=== PATIENT | male | born 1970 | race Caucasian/White ===

== ENCOUNTER 2017-06-05 16:36 | Inpatient (IN) | payer OTHER ==
[~2017-06-05] VITALS: Ht 172.7 cm; Wt 102.1 kg
--- NOTE | ~2017-06-05 | HC ---
[facility] [place] [address] CONSULTATION Name: ZACHARY OLIVAREZ Room #: 422-P [facility] IN M.R.#: [id number] Admission: 06/05/17 Attend Phys: Hermila Sharif MD Discharge: 06/07/17 Date of : 74 Report #: [id number] THIS REPORT FOR: //name// CC: Hung Sharif DATE OF SERVICE: 06/06/2017 CHIEF COMPLAINT: Right ureteral stone. HISTORY OF PRESENT ILLNESS: The patient is being seen today at the request of Dr. Sharif for evaluation and management of distal ureteral stone. He was admitted yesterday morning with severe right flank pain and nausea. He has undergone lithotripsy in the past. He has required persistent pain medicine. ALLERGIES: None. ILLNESSES: Hypertension and dyslipidemia. MEDICATIONS: Lipitor 40 mg daily, metoprolol 100 mg daily, quinapril 20 mg daily. 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 He does not smoke or drink. REVIEW OF SYSTEMS: He denies shortness of breath or chest pain. PHYSICAL EXAMINATION: GENERAL: He is a comfortable appearing gentleman. VITAL SIGNS: Temperature is 37.2, pulse 72, respirations 16, blood pressure 148/84. ABDOMEN: Soft, without masses. LABORATORY DATA: White count 7.4 thousand, hemoglobin 11.6, hematocrit 33.2, platelets 133,000. Sodium is 138, potassium 3.8, chloride 105, CO2 of 24, creatinine is 2.7 up from 2.5 yesterday. Urine is clear yellow, specific gravity is 1.025, pH is 5.0, trace blood, negative for nitrites and leukocyte esterase. CT scan shows a 9-mm stone in the right lower pole of the kidney, which is nonobstructing. There is a ____ mm stone, 1 cm proximal to the right ureterovesical junction. IMPRESSION: Symptomatic right UVJ stone. PLAN: Discussed options including continued observation or ureteroscopy given this pain. Pain is poor control and he has had a rise in his creatinine, I would recommend intervention. Risks, benefits, complications were discussed in [facility] [address] [place] [address] CONSULTATION Name: ZACHARY OLIVAREZ Room #: 422-P [facility] IN M.R.#: [id number] Admission: 06/05/17 Attend Phys: Hermila Sharif MD Discharge: 06/07/17 Date of : 74 Report #: [id number] detail including injury to the kidney and injury to the ureter, issues related to stent placement and stent removal. He is anxious to proceed. We will check into scheduling. <ELECTRONICALLY SIGNED> By: Tanmay Ortiz MD 06/09/17 1537 [id number] Tanmay Ortiz MD /nt
--- NOTE | ~2017-06-05 | HC ---
[facility] [place] [address] CONSULTATION Name: ZACHARY OLIVAREZ Room #: 422-P [facility] IN M.R.#: [id number] Admission: 06/05/17 Attend Phys: Hermila Sharif MD Discharge: 06/07/17 Date of : 74 Report #: [id number] THIS REPORT FOR: //name// CC: Hung Sharif REASON FOR CONSULTATION: Acute kidney injury. REASON FOR PRESENTATION: pain. HISTORY OF PRESENT ILLNESS: The patient is known to have nephrolithiasis with a previous left-sided nephrolithiasis episodes. He presented with 2 days of flank pain with radiation to the groin area. The pain was associated with nausea. It was described as a typical nephrolithiasis pain. Pain intensity got exacerbated over the last 2 days before his presentation to the emergency room. There were some partials reliefs of those pain with the Aleve. No reported hematuria. No reported fever or chills. The patient could not tolerate the pain and presented to the emergency room, where he had a CT that showed 2 stones, one was in the right lower kidney pole and the other was in the mid ureter, causing mild obstruction. On presentation to the emergency room, his creatinine was 2.5. He received some Toradol and his creatinine had risen to 2.7. Of note is the fact that the patient has a creatinine of 1.6 back in 2016. He is not aware of any previous chronic medical kidney disease. He is known to have hypertension, but he tells me that his blood pressure is under control. PAST MEDICAL HISTORY: 1. Hypertension. 2. Hyperlipidemia. 3. Nephrolithiasis. MEDICATIONS: 1. Metoprolol. 2. Quinapril. FAMILY HISTORY: No known nephrolithiasis in the family. SOCIAL HISTORY: Occasionally, he drinks. 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 No drug abuse. REVIEW OF SYSTEMS: GENERAL: No fever or chills. CARDIOVASCULAR: No chest pain or palpitation. PULMONARY: No cough or hemoptysis. GASTROINTESTINAL: Mild nausea and vomiting. GENITOURINARY: Flank pain, but no hematuria, no frequency. NEUROLOGIC: No dizziness. No headache. SKIN: No rash or ulceration. [facility] [address] [place] [address] CONSULTATION Name: ZACHARY OLIVAREZ Room #: 422-P [facility] IN .R.#: [id number] Admission: 06/05/17 Attend Phys: Hermila Sharif MD Discharge: 06/07/17 Date of : 74 Report #: [id number] MUSCULOSKELETAL: No back pain. No morning stiffness. HEMATOLOGIC: No epistaxis. No easy bruisability. PHYSICAL EXAMINATION: GENERAL: He is alert, oriented, in mild distress. VITAL SIGNS: Blood pressure was 150/80. HEAD AND NECK: No jugular venous distention, no bruit, no thyromegaly. CHEST: Clear to auscultation, with no crackles. CARDIOVASCULAR: No rub detected. ABDOMEN: Soft. Slightly tender in the right flank area. LOWER EXTREMITIES: No edema, with intact peripheral pulses. LABORATORY DATA: Laboratory values reviewed. His most recent creatinine is 2.7. As I have stated, his creatinine yesterday was 2.5. Most recent creatinine in 2016 was 1.9. IMAGING: Including head CT were reviewed. He did have some mild hydronephrosis. Along with that, he had those 2 stones; one in the right lower pole and the other one is in the mid ureteric area. ASSESSMENT, IMPRESSION AND PLAN: 1. Acute kidney injury. 2. Chronic kidney disease. 3. Obstructive stones with mild hydronephrosis. 4. Remote history of nephrolithiasis. 5. Initiate appropriate workup for the acute kidney injury. He does have a creatinine of 1.6 in 2016, so will need to rule out chronic kidney disease. 6. The worsening of the renal function is expected with his nephrolithiasis and the dose of the Toradol. Please avoid nonsteroidal anti-inflammatory medications. 7. Urological evaluation is ongoing and the patient is supposed to go and have a cystoscopy and possible retrieval of the stone and stent removal. 8. Keep holding the qedsborzcyi-tgzsgogguq-ucowmf inhibitor for now. 9. IV fluids. 10. Flomax. 11. As usual, it is my pleasure to evaluate your patient. Should you have any question, please do not hesitate to call me. <ELECTRONICALLY SIGNED> By: Loraine Rudd MD 06/07/17 1214 [id number] Loraine Rudd MD /nt
--- NOTE | ~2017-06-05 | H ---
[facility] [place] [address] HISTORY AND PHYSICAL Name: ZACHARY OLIVAREZ Room #: 422-P ADM IN M.R.#: [id number] Admission: 06/05/17 Attend Phys: Hermila Sharif MD Discharge: Date of : 74 Report #: [id number] THIS REPORT FOR: //name// CC: Hung Sharif DATE OF SERVICE: 06/05/2017 The patient is admitted to the hospital on June 05. CHIEF COMPLAINT: Right flank pain. HISTORY OF PRESENT ILLNESS: The patient is a 47-year-old man with history of nephrolithiasis about a year ago, who comes to the hospital with right flank pain. The patient states that pain started about 2 days ago, and then it got better spontaneously. This morning, the pain became worse, about 10/10. The patient states that the pain radiates down to the groin. He presents to the emergency room with these complaints. CT of the abdomen and pelvis showed a 9-mm stone at the right lower pole of the kidney, as well as 4-mm stone, 1 cm from UPJ. The patient received symptomatic treatment in the emergency room, and he already feels better. The patient's lab work revealed creatinine of 2.4. The patient reports diminished appetite and poor p.o. intake last few days. He has 6-15 white cells in the urine. He denies fevers or chills. PAST MEDICAL HISTORY: 1. Nephrolithiasis, left-sided about a year ago. 2. Hypertension. 3. Dyslipidemia. CURRENT MEDICATIONS: The patient is on Lipitor 40 mg a day, metoprolol 100 mg a day, and quinapril 20 mg a day. FAMILY HISTORY: Reviewed and not pertinent to the patient's current condition. 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 He does not smoke cigarettes, reports very rare alcohol intake. REVIEW OF SYSTEMS: As above in HPI section, all others negative. PHYSICAL EXAMINATION: GENERAL: The patient is a young man who is in no apparent distress. VITAL SIGNS: Blood pressure is 139/50, heart rate is 70 and regular, respiration is 17, and temperature is 98.2. [facility] [address] [place] [address] HISTORY AND PHYSICAL Name: ZACHARY OLIVAREZ Room #: 422-P [facility] IN [facility].#: [id number] Admission: 06/05/17 Attend Phys: Hermila Sharif MD Discharge: Date of : 74 Report #: [id number] HEENT: Pupils are equal. Eye movements are normal. The patient has anicteric sclerae. NECK: Supple. He has no thyromegaly. Carotid bruits are not appreciated. RESPIRATORY: Lungs are clear to auscultation bilaterally. CARDIOVASCULAR: The patient has regular rhythm and rate with no murmurs, gallops, or rubs. GASTROINTESTINAL: Abdomen is soft, nondistended and nontender. The patient has right flank pain. Bowel sounds are present. He has no hepatomegaly or splenomegaly. NEUROLOGIC: The patient is alert and oriented x3. His examination is nonfocal. MUSCULOSKELETAL: The patient has no joint deformities. He has no edema, cyanosis, or clubbing. SKIN: Skin is dry and warm. The patient has no skin lesions. LABS: Comprehensive metabolic profile is essentially normal, except that creatinine of 2.5. The patient's creatinine was 1.6 from about a year ago. On CBC, white count is 11.3, hemoglobin is 13.8, hematocrit is 40.3, and platelets normal at 178. Urinalysis shows trace blood, and white cells between [address] of the abdomen, result as above in HPI section. ASSESSMENT AND PLAN: 1. Right-sided nephrolithiasis. As noted, CT showed right lower pole 9 mm kidney calculus, as well as 4 mm calculus close to ureteropelvic junction. The patient will be started on IV fluids. Symptomatic treatment will be continued. Urologist is consulted. Consultation is very much appreciated. 2. Acute kidney injury, elevated creatinine. Quinapril will be discontinued. The patient will be treated with IV fluids, and kidney function will be reassessed. 3. Hypertension. Acceptable control. Again, quinapril will be discontinued. Metoprolol dose will be clarified, and will be continued unchanged. 4. Deep venous thrombosis prophylaxis. We will use SCDs. <ELECTRONICALLY SIGNED> By: Hermila Sharif MD 06/06/17 1534 [id number] Hermila Sharif MD /nt
--- NOTE | ~2017-06-05 | O ---
[facility] [place] [address] OPERATIVE REPORT Name: ZACHARY OLIVAREZ Room #: 422-P ADM IN M.R.#: [id number] Admission: 06/05/17 Attend Phys: Hermila Sharif MD Discharge: Date of : 74 Report #: [id number] THIS REPORT FOR: //name// CC: Hung Sharif DATE OF SERVICE: 06/06/2017 PREOPERATIVE DIAGNOSIS: Right distal ureteral stone. POSTOPERATIVE DIAGNOSIS: Right distal ureteral stone. SURGEON: Henny Walton MD ASSISTANTS: None. PROCEDURES PERFORMED: 1. Cystoscopy. 2. Right ureteroscopy with laser lithotripsy and basket stone extraction. 3. Left double-J ureteral stent placement. ESTIMATED BLOOD LOSS: None. SPECIMEN: Right ureteral stone. NARRATIVE EVENTS: After proper patient identification and informed consent was obtained, the patient was brought to the operative suite and anesthesia was induced. He was prepped and draped in the usual sterile fashion, in the dorsal lithotomy position. After surgical time-out, we began with rigid cystoscopy. The anterior urethra was without abnormality. The prostatic urethra was short and not obstructive. Upon entering the bladder, pancystoscopy was performed. The bladder mucosa was unremarkable. We turned our attention to the right ureteral orifice and we were able to immediately identify a brown appearing calculus right at the UVJ. Initially I tried to use the laser to fragment this in that location; however, then pushed back further into the ureter. I then advanced a Glidewire into the renal pelvis under fluoroscopy. A semirigid ureteroscope was advanced and a holmium laser was used to fragment the stone into multiple pieces. All stone fragments were basketed out. I inspected the ureter to the mid ureter location on completion and again no further stone debris was identified. The scope was therefore withdrawn and a 6 x 26 double-J ureteral stent was advanced. There was good curl of the stent in the renal pelvis as well as the bladder upon deployment. The stent was left on a dangle. [address] [address] OPERATIVE REPORT Name: OLIVAREZZACHARY NANDA Room #: 422-P [facility] IN .R.#: [id number] Admission: 06/05/17 Attend Phys: Hermila Sharif MD Discharge: Date of : 74 Report #: [id number] The patient tolerated the procedure well and was transferred to the recovery area in stable condition. By: [id number] [id number] Henny Walton MD /nt
[~2017-06-05 16:36] MED LIST: ASPIRIN EC81 M1; ATORVASTATIN CA40 MG PO; FLOMAX0.4 MG PO; KEFLEX500 MG PO; NORCO 5-325 TA1 EACH PO; QUINAPRIL 20 MG20 MG; SIMVASTATIN40 MG; TOPROL XL100 MG; ZOFRAN ODT4 MG PO
[2017-06-05 16:37] VITALS: BP 141/85
[2017-06-05 17:04] LABS: ABSOLUTE NEUTROPHILS 8.5 thou/uL (1.4-8.2); BASOPHILS 0.7 % (0.0-2.0); EOSINOPHILS 0.6 % (0.0-3.0); HEMATOCRIT 40.3 % (42.0-52.0); HEMOGLOBIN 13.8 gm/dL (14.0-18.0); LYMPHOCYTES 18.2 % (24.0-44.0); MANUAL DIFF NO; MCH 30.1 pg (26.0-34.0); MCHC 34.2 g/dL (28.0-37.0); MCV 88.1 fL (80.0-100.0); MONOCYTES 5.5 % (1.0-8.0); PLATELET COUNT 178 thou/uL (150-400); RBC 4.58 mil/uL (4.50-6.00); RDW 13.8 % (10.5-14.5); WBC 11.3 thou/uL (4.0-11.0)
[2017-06-05 17:08] LABS: URINE BILIRUBIN NEGATIVE (Negative); URINE BLOOD TRACE (Negative); URINE COLOR YELLOW; URINE GLUCOSE-RANDOM* NEGATIVE (Negative); URINE KETONES NEGATIVE (Negative); URINE NITRITE NEGATIVE (Negative); URINE PROTEIN (DIPSTICK) NEGATIVE (Negative); URINE SPECIFIC GRAVITY 1.025 (1.003-1.035); URINE UROBILINOGEN 0.2 E.U./dl (0.2-1.0)
[2017-06-05 17:13] LABS: CREATININE 2.5 mg/dL (0.7-1.3)
[2017-06-05 18:31] VITALS: BP 139/50
[2017-06-05 18:56] VITALS: BP 118/60
[2017-06-05 20:00] VITALS: BP 127/72
[2017-06-06 04:12] VITALS: BP 105/55
[2017-06-06 04:17] LABS: ALBUMIN 3.8 g/dL (3.4-5.0); ALKALINE PHOSPHATASE 77 U/L (46-116); DIRECT BILIRUBIN < 0.1 mg/dL (<0.1-0.3); SGOT 28 U/L (15-37); SGPT 40 U/L (30-65); TOTAL BILIRUBIN 0.4 mg/dL (<0.1-1.0); TOTAL PROTEIN 7.9 g/dL (6.4-8.2)
[2017-06-06 05:40] LABS: BASOPHILS 0.4 % (0.0-2.0); EOSINOPHILS 1.1 % (0.0-3.0); HEMATOCRIT 33.2 % (42.0-52.0); LYMPHOCYTES 25.1 % (24.0-44.0); MCH 30.8 pg (26.0-34.0); MCHC 34.9 g/dL (28.0-37.0); MCV 88.1 fL (80.0-100.0); MONOCYTES 6.7 % (1.0-8.0); PLATELET COUNT 133 thou/uL (150-400); POLYS 66.7 % (36.0-66.0); RBC 3.77 mil/uL (4.50-6.00); RDW 13.5 % (10.5-14.5); WBC 7.4 thou/uL (4.0-11.0)
[2017-06-06 05:42] LABS: HEMOGLOBIN 11.6 gm/dL (14.0-18.0)
[2017-06-06 05:46] LABS: MANUAL DIFF NO
[2017-06-06 05:47] LABS: CALCIUM 7.7 mg/dL (8.5-10.1); CREATININE 2.7 mg/dL (0.7-1.3); POTASSIUM 3.8 mmol/L (3.5-5.1)
[2017-06-06 07:53] VITALS: BP 148/84
[2017-06-06 14:27] VITALS: BP 128/70
[2017-06-06 15:34] VITALS: BP 125/68
[2017-06-06 18:44] LABS: URINE BILIRUBIN 1+ (Negative); URINE BLOOD 3+ (Negative); URINE COLOR RED; URINE GLUCOSE-RANDOM* NEGATIVE (Negative); URINE KETONES NEGATIVE (Negative); URINE LEUKOCYTES-REFLEX TRACE (Negative); URINE PROTEIN (DIPSTICK) 2+ (Negative); URINE UROBILINOGEN 0.2 E.U./dl (0.2-1.0)
[2017-06-06 18:45] LABS: ICTOTEST (BILI CONFIRMATORY) Negative (Negative)
[2017-06-06 18:51] LABS: CASTS None Seen /LPF (None Seen); CRYSTALS None Seen /LPF (None Seen); SQUAMOUS None Seen /LPF (0-3); URINE RBC >20 Many /HPF (0-2); URINE WBC-REFLEX 0-5 Rare /HPF (0-5)
[2017-06-06 19:02] LABS: PROT/CREAT RATIO 3.4; URINE CREATININE-RANDOM* 50.3 mg/dL; URINE PROTEIN-RANDOM* 172.1 mg/dL (<11.9)
[2017-06-06 20:15] VITALS: BP 117/67
[2017-06-07 03:55] VITALS: BP 158/84
[2017-06-07 04:00] VITALS: BP 114/57
[2017-06-07 04:00] LABS: CALCIUM 7.9 mg/dL (8.5-10.1); CREATININE 1.9 mg/dL (0.7-1.3); POTASSIUM 4.6 mmol/L (3.5-5.1)
[2017-06-07 07:48] VITALS: BP 114/61
[2017-06-07] MEDS ORDERED: FLOMAX0.4 MG PO (08:37)
[2017-06-07 08:58] VITALS: BP 114/61
== END 2017-06-07 10:30 | disposition home or self-care (01) | DRG 669 ==
LOC: ER 16:36 → EROBS 18:13 → 4E 18:13
PROVIDERS: Hospitalist; Internal Medicine Endocrinology, Diabetes & Metabolism; Nurse Practitioner; Nurse Practitioner Acute Care
PROC: 0T768DZ Dilation of Right Ureter with Intraluminal Device, Via Natural or Artificial Opening Endoscopic (ICD-10-PCS; principal; 2017-06-06)
PROC: 0TC68ZZ Extirpation of Matter from Right Ureter, Via Natural or Artificial Opening Endoscopic (ICD-10-PCS; principal; 2017-06-06)
DX: N13.2 Hydronephrosis with renal and ureteral calculous obstruction (principal); E78.5 Hyperlipidemia, unspecified; N18.9 Chronic kidney disease, unspecified; I12.9 Hypertensive chronic kidney disease with stage 1 through stage 4 chronic kidney disease, or unspecified chronic kidney disease; N39.0 Urinary tract infection, site not specified; R91.1 Solitary pulmonary nodule; N17.0 Acute kidney failure with tubular necrosis
CPT/HCPCS: 10783; 50010; 50101; 50164; 51620; 51767; 56674; 56815; 62110; 62900; 70005